=== PATIENT | female | born 1975 | race Caucasian/White ===

== ENCOUNTER 2016-09-10 20:44 | Emergency (ER) | payer SELFPAY ==
[~2016-09-10] VITALS: Ht 165.1 cm; Wt 61.3 kg
[~2016-09-10 20:44] MED LIST: AMOX250C PO; Z.0.NO CURRENT MEDS
[2016-09-10 21:33] VITALS: BP 111/65; PULSE 73; RESP 16; TEMP 99; O2SAT 98
[2016-09-10] MEDS ORDERED: POLY10O EACH EYE (22:12)
--- NOTE | 2016-09-10 22:12 | PD ---
HPI Chief Complaint: Eye Problems/Injury Time Seen by Provider: 21:48 Travel History International Travel<30 days: No Contact w/Intl Traveler<30days: No Traveled to known affect area: No History of Present Illness HPI Patient is a 41 year old female who wears contacts presents with redness and discharge of the left eye since today. Has a child at home with conjunctivitis on drops. She otherwise feels well. She has thrown out her contacts she was wearing and has not worn them since the discharge started. No complaints of pain. PFSH Past Medical History Medical History: Denies Significant Hx Diminished Hearing: No Tetanus Vaccination: > 5 Years Influenza Vaccination: No ?: Not LMP: 1 week ago Tubal Ligation: Yes Social History Alcohol Use: No Tobacco Use: Yes (09/09 PPD) Substance Use: No Allergies-Medications (Allergen,Severity, Reaction): Coded Allergies: No Known Allergies (Verified , 09/10/16) Reported Meds & Prescriptions Reported Meds & Active Scripts Active Polytrim Opth Drops (Polymyxin/Trimethoprim Sulfate) 10,000-0.1 Unit/Ml-% Soln 1 Drop EACH EYE Q6HR 10 Days Review of Systems Except as stated in HPI: all other systems reviewed are Neg Physical Exam Narrative GENERAL: WD/WN in nad. SKIN: Warm and dry. HEAD: Normocephalic. EYES: No scleral icterus. MInimal injection of the left eye conjunctiva with minimal green discharge. EOMI. Vision intact. No FB seen. NECK: Supple, trachea midline. No JVD or lymphadenopathy. CARDIOVASCULAR: Regular rate and rhythm without murmurs, gallops, or rubs. RESPIRATORY: Breath sounds equal bilaterally. No accessory muscle use. GASTROINTESTINAL: Abdomen soft, non-tender, nondistended. MUSCULOSKELETAL: No cyanosis, or edema. BACK: Nontender without obvious deformity. No CVA tenderness. Data Data Last Documented VS Vital Signs Date Time Temp Pulse Resp B/P Pulse Ox O2 Delivery O2 Flow Rate FiO2 09/10/16 21:33 99.0 73 16 111/65 98 MDM Medical Decision Making Medical Screen Exam Complete: Yes Emergency Medical Condition: Yes Differential Diagnosis Viral conjunctivitis, Bacterial conjunctivitis, FB in eye, URI. Narrative Course Quite pleasant 41 year old female with uncomplicated bacterial conjunctivitis. Discussed at length no contacts until eye no longer has discharge. Stable for discharge. Diagnosis Primary Impression: Conjunctivitis Qualified Code: H10.32 - Acute bacterial conjunctivitis of left eye Med/Other Pt SpecificInfo: Prescription(s) given Scripts Polymyxin B-Trimethoprim Opth Drops (Polytrim Opth Drops)10,000-0.1 Unit/Ml-% Soln1 Drop EACH EYE Q6HR 10 Days Ref 1 Prov:Avtar Valle MD 09/10/16 Disposition: 01 DISCHARGE HOME Condition: Stable Avtar Valle MD Sep 10, 2016 22:12
== END 2016-09-10 22:20 | disposition home or self-care (01) ==
LOC: PHED 20:44 → PHEFT 22:20
DX: H10.32 Unspecified acute conjunctivitis, left eye (principal); F17.200 Nicotine dependence, unspecified, uncomplicated
CPT/HCPCS: 99282